=== PATIENT | male | born 1980 | race Caucasian/White ===

== ENCOUNTER 2018-01-22 22:45 | Emergency (ER) | payer OTHER ==
--- NOTE | 2018-01-22 23:26 | C.PDOC ---
History Of Present Illness 37 year old male presents to the ED c/o lower dental pain for the past 3 days. Patient reports went to see his Dentist who prescribed him Amoxicillin and Motrin yesterday, however patient reports pain is much more severe now. Patient states he noticed some swelling underneath his tongue. Patient denies fever, chills, drainage, injury, fall, trauma, SOB, drooling. Time Seen by Provider: 01/22/18 22:55 Chief Complaint (Nursing): Abnormal Skin Integrity History Per: Patient History/Exam Limitations: no limitations Onset/Duration Of Symptoms: Days Current Symptoms Are (Timing): Still Present Quality Of Symptoms: Painful, Swollen Recent travel outside of the [place]: No Additional History Per: Patient Past Medical History Reviewed: Historical Data, Nursing Documentation, Vital Signs Vital Signs: Last Vital Signs Temp 98 F 01/22/18 22:52 Pulse 102 H 01/22/18 22:52 Resp BP 149/96 H 01/22/18 22:52 Pulse Ox 98 01/22/18 22:52 - Medical History PMH: No Chronic Diseases Surgical History: No Surg Hx Family History: States: Unknown Family Hx - Social History Hx Alcohol Use: No Hx Substance Use: No Review Of Systems Constitutional: Negative for: Fever, Chills Eyes: Negative for: Vision Change ENT: Positive for: Mouth Pain, Mouth Swelling. Negative for: Nose Discharge, Nose Congestion, Throat Swelling Respiratory: Negative for: Cough, Shortness of Breath Gastrointestinal: Negative for: Nausea, Vomiting Musculoskeletal: Negative for: Neck Pain Skin: Negative for: Rash Neurological: Negative for: Headache Physical Exam - Physical Exam Appears: Non-toxic, In Acute Distress Skin: Normal Color, Warm, Dry Head: Atraumatic, Normacephalic Eye(s): bilateral: Normal Inspection Ear(s): Bilateral: Normal Nose: No Discharge Oral Mucosa: Moist Tongue: Swelling (underneath) Teeth: No Normal Dentition (poor), Caries Throat: Normal, No Erythema, No Exudate Neck: Normal ROM, Supple Lymphatic: No Adenopathy (submandibular) Chest: Symmetrical Cardiovascular: Rhythm Regular, No Friction Rub, No Murmur Respiratory: Normal Breath Sounds, No Rales, No Rhonchi, No Wheezing Gastrointestinal/Abdominal: Soft, No Tenderness, No Guarding, No Rebound Extremity: Normal ROM, No Tenderness, No Swelling Neurological/Psych: Oriented x3, Normal Speech, Normal Cognition Gait: Steady ED Course And Treatment - Laboratory Results Result Diagrams: 01/22/18 23:46 01/22/18 23:46 O2 Sat by Pulse Oximetry: 98 (On RA) Pulse Ox Interpretation: Normal - CT Scan/US CT neck Other Rad Studies (CT/US): Read By Radiologist, Radiology Report Reviewed CT/US Interpretation: PROCEDURE: CT SOFT TISSUE NECK WITH CONTRAST. REASON FOR EXAM: Swelling of the tongue. Suspected Harsh angina. FINDINGS: Mild soft tissue edema swelling underlying the tongue. Mildly prominent bilateral cervical lymph nodes the largest measuring 1.3 cm, probably benign and reactive. Normal bilateral parotid glands. Normal bilateral associate pastor spaces. Normal bilateral parapharyngeal spaces. Normal bilateral carotid spaces. Normal bilateral sublingual and submandibular glands. Normal visualized nasopharynx. Normal retropharyngeal space. Normal perivertebral space. Normal visualized bilateral faucial tonsils. The visualized tongue, tongue base and oropharynx are normal. There is no demonstrated solid or cystic mass lesion. Normal epiglottis, bilateral vallecula and hypopharynx. The pre-epiglottic and paraglottic adipose spaces are normal. Normal visualized bilateral piriform sinuses, aryepiglottic folds, vocal cords, and arytenoid-cricoid articulations. Normal subglottic trachea. Normal bilateral lobes of the thyroid gland. Normal visualized pulmonary apices. Normal visualized paranasal sinuses. Normal visualized cervical spine. IMPRESSION: Mild soft tissue edema swelling underlying the tongue. Probably infectious/inflammatory pathology. No fluid collection or drainable abscess formation. No gas densities to suggest gas forming infection. Mildly prominent bilateral cervical lymph nodes the largest measuring 1.3 cm, probably benign and reactive. . Electronically signed on Jan 23, 2018 1:59:57 AM COT by: Yanci Steen M.D., Certified by ABR, MSK, Neuroradiology Medical Decision Making Medical Decision Making: Plan: * labs * CT neck Disposition - Disposition Referrals: Maria Elena Valle DMD [Staff Provider] - Disposition: HOME/ ROUTINE Disposition Time: 02:47 Condition: GOOD Additional Instructions: RETURN TO THE ED SOON POSSIBLE IF THERE IS ANY WORSENED SWELLING, CANNOT SWALLOW, SHORTNESS OF BREATH OR PAIN/FEVER YOU MUST FOLLOW UP WITH THE DENTIST WITHIN 1-2 DAYS WITHOUT FAIL. 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 - Scribe Statement The provider has reviewed the documentation as recorded by the Scribe [place] All medical record entries made by the Memoibmichelle were at my direction and personall y dictated by me. I have reviewed the chart and agree that the record accurately reflects my personal performance of the history, physical exam, medical decision making, and the department course for this patient. I have also personally directed, reviewed, and agree with the discharge instructions and disposition.
[2018-01-22 23:48] LABS: BASO # 0.1 K/uL (0.0-0.2); BASO % 0.9 % (0.0-2.0); EOS # 0.2 K/uL (0.0-0.7); EOS % 1.9 % (0.0-4.0); HEMOGLOBIN 14.8 g/dL (12.0-18.0); LYMPH # 2.9 K/uL (1.0-4.3); LYMPH % 28.1 % (20.0-40.0); MEAN CELL VOLUME 87.9 fL (80.0-94.0); MEAN CORPUSCULAR HEMOGLOBIN 30.4 pg (27.0-31.0); MEAN CORPUSCULAR HGB CONC 34.6 g/dL (33.0-37.0); MEAN PLATELET VOLUME 9.1 fL (7.2-11.7); MONO # 0.7 K/uL (0.0-0.8); MONO % 6.6 % (0.0-10.0); NEUT # 6.6 K/uL (1.8-7.0); NEUT % 62.5 % (50.0-75.0); NRBC % 0.1 % (0.0-2.0); RBC 4.87 Mil/uL (4.40-5.90); WHITE BLOOD COUNT 10.5 K/uL (4.8-10.8)
[2018-01-23 00:01] LABS: ALB/GLOB RATIO 1.6 (1.0-2.1); ALBUMIN 4.6 g/dL (3.5-5.0); ALT/SGPT 102 U/L (21-72); AST/SGOT 39 U/L (17-59); BLOOD UREA NITROGEN 15 mg/dL (9-20); CALCIUM 9.2 mg/dl (8.6-10.4); GFR NON-AFRICAN AMERICAN > 60
[2018-01-23] MEDS ORDERED: Iodixanol 320 MG/ML 100 ML BOTTLE IV ONE (00:48)
[2018-01-23 02:48] VITALS: RESP 18
[2018-01-23 03:35] VITALS: BP 122/72; PULSE 92; TEMP 98
[2018-01-23 05:19] VITALS: O2SAT 98
--- NOTE | 2018-01-23 16:58 | CT ---
Date of service: 01/23/2018. PROCEDURE: CT NECK WITH CONTRAST HISTORY: Swelling under tongue, r/o [place] angina COMPARISON: None available. TECHNIQUE: CT of the neck with intravenous contrast. Coronal and sagittal reformats generated. Intravenous contrast dose: Cc Visipaque 320 Radiation dose: Total exam DLP = 466.1 mGy-cm. This CT exam was performed using one or more of the following dose reduction techniques: Automated exposure control, adjustment of the mA and/or kV according to patient size, and/or use of iterative reconstruction technique. FINDINGS: NASOPHARYNX: Slightly prominent adenoids which appear to reduce the nasopharyngeal airway however no evidence to suggest discrete nasopharyngeal masses. SUPRAHYOID NECK: The sublingual and submandibular musculature and fat/fascia planes appear unremarkable without evidence of fluid collections. The Genioglossal, hyoglossus and mylohyoid muscles appear unremarkable The anterior bellies of the digastric musculature appear prominent.... Note that the possibility of swelling in immediate sublingual space cannot be excluded INFRAHYOID NECK: Unremarkable larynx, hypopharynx, and supraglottic space. Vocal cords intact. MASS: None. GLANDS: Parotid and submandibular glands unremarkable. Normal size thyroid gland, without nodule. LYMPH NODES: There are a few small nonspecific bilateral cervical lymph nodes.. CERVICAL SPINE: No fracture or focal lesion. Minimal degenerative spondylosis seen at the C5-C6 level. VASCULAR STRUCTURES: Unremarkable. OTHER FINDINGS: None. IMPRESSION: There appears to be prominence of the anterior bellies of the digastric musculature nonspecific.. Questionable sublingual immediate sublingual space swelling. ENT consultation recommended..
== END 2018-01-23 03:32 | disposition home or self-care (01) ==
LOC: C.ER 22:45
DX: K12.2 Cellulitis and abscess of mouth (principal); K14.0 Glossitis
CPT/HCPCS: 70491; 80053; 85025; 96365; 96375; 99284; J1885; Q9967